=== PATIENT | female | born 1990 | race Caucasian/White ===

== ENCOUNTER 2016-11-14 16:05 | Emergency (ER) | payer OTHER ==
[~2016-11-14 16:05] MED LIST: FERR1TAB36 PO; PROM12.54 PO
[2016-11-14 16:38] VITALS: BP 113/67; PULSE 74
--- NOTE | 2016-11-14 16:42 | PD ---
HPI Chief Complaint pelvic pain Date Seen: Nov 14, 2016 Time Seen: 16:28 (Felix Hammonds MD R1) Travel History International Travel<30 Days: No Contact w/Intl Traveler<30Days: No (Felix Hammonds MD R1) History of Present Illness HPI 26 y/o at 30/6 weeks presents with lower pelvic pain. States they started last night and continued through this morning. Endorses movement. Denies vaginal bleeding, loss of fluids, contractions. Experiences [place] every once and awhile. Her OB is Dr. Martinez at the [facility]. Denies any other symptoms currently. Denies dysuria. Denies headache, changes in vision, epigastric pain, leg edema. Denies chest pain, SOB, leg pain. No complications with this . Para: 2 : 3 (Felix Hammonds MD R1) History Past Medical History Medical History: Denies Significant Hx (Felix Hammonds MD R1) Obstetric History Obstetric History Previous 2 deliveries were term, (Felix Hammonds MD R1) Past Surgical History Surgical History: No Previous Surgery (Felix Hammonds MD) Family History Family History: Negative (Felix Hammonds MD) Social History Alcohol Use: No Tobacco Use: No Substance Abuse: No (Felix Hammonds MD R1) Allergies-Medications (Allergen,Severity, Reaction): Coded Allergies: No Known Allergies (Unverified , 11/01/16) Home Meds Active Scripts Cephalexin (Keflex)500 Mg [id number] Mg PO Q12H #14 CAP Ref 0 Prov:oTri Carney MD R2 11/14/16 Ferrous Sulfate (Iron)325 Mg [id number] Mg PO TIDPC #90 TAB Ref 2 Prov:Pat Martinez MD, R3 11/01/16 Reported Medications Promethazine 12.5 Mg Tab12.5 Mg PO Q6H PRN (NAUSEA OR VOMITING) #20 TAB Ref 0 08/31/16 Review of Systems General / Constitutional: Weight Gain, No: Fever, Weight Loss, Chills Eyes: No: Diploplia, Blurred Vision, Visual changes HENT: No: Headaches, Vertigo Cardiovascular: No: Irregular Rhythm, Chest Pain or Discomfort, Palpitations Respiratory: No: Cough, Short of Breath Gastrointestinal: No: Nausea, Vomiting, Diarrhea, Constipation Genitourinary: Pelvic Pain, No: Urgency, Frequency, Dysuria, Discharge, Vaginal Bleeding Musculoskeletal: No: Limited ROM, Weakness Skin: No Rash, No Itching Neurologic: No: Weakness, Dizziness Psychiatric: No: Anxiety, Depression Endocrine: No: Heat Intolerance, Cold Intolerance Hematologic/Lymphatic: No Easy Bruising, No Lymph Node Enlargement (Felix Hammonds MD R1) Physical Exam Narrative GENERAL: Well-nourished, well-developed patient. SKIN: Warm and dry. HEAD: Normocephalic and atraumatic. EYES: No scleral icterus. No injection or drainage. ENT: No nasal drainage noted. Mucous membranes pink. Airway patent. NECK: Supple, trachea midline. No JVD. CARDIOVASCULAR: Regular rate and rhythm without murmurs, gallops, or rubs. RESPIRATORY: Breath sounds equal bilaterally. No accessory muscle use. ABDOMEN/GI: Abdomen soft, non-tender, bowel sounds present, no rebound, no guarding Gravid to 30 weeks size Fundal Height: 30cm GENITOURINARY: External Genitalia: intact and normal in appearance Dilatation: 0 Effacement: 0 Station: -3 Presentation: vertex Membranes: intact Uterine Contractions: none FHT's: Category: 1 Baseline: 130 Reactive: yes Variability: moderate Decels: none EXTREMITIES: No cyanosis or edema. BACK: Nontender without obvious deformity. No CVA tenderness. NEUROLOGICAL: Awake and alert. Motor and sensory grossly within normal limits. Five out of 5 muscle strength in all muscle groups. Normal speech. (Felix Hammonds MD R1) Data Data Vital Signs Reviewed: Yes (Felix Hammonds MD R1) MDM Medical Record Reviewed: Yes Interpretation(s) 26 y/o at 30/6 weeks presents with lower pelvic pain. -Cervical exam: 0/0/-3 -Category 1 FHT Plan - Monitor vitals - Continuous FHT - UA (Felix Hammonds MD R1) Narrative Course / MDM UA significant for large leukocyte esterase, rare urine bacteria, many mucus, 7 WBCs Will treat with Keflex 500mg PO BID x 7 days. Follow-up with Dr. Martinez. juju Velez (Tori Carney MD R2) Diagnosis Diagnosis: Primary Impression: UTI (urinary tract infection) Qualified Code: N30.00 - Acute cystitis without hematuria Disposition: 01 DISCHARGE HOME Condition: Stable Scripts Cephalexin (Keflex)500 Mg [id number] Mg PO Q12H #14 CAP Ref 0 Prov:Tori Carney MD R2 11/14/16 Addendum Remarks Urinalysis shows protein Rbc's WBCs Yeast Patient to be treated with Keflex 500 mg by mouth 3 times a day for 7 days Discharge home kick count No fluid hydration No cervical change cervix is closed Category 1 tracing (Rosanne Sanchez MD) Felix Hammonds MD R1 Nov 14, 2016 16:42 Tori Carney MD R2 Nov 14, 2016 18:10 Rosanne Sanchez MD Nov 14, 2016 18:15
[2016-11-14 18:07] LABS: BACTERIA, URINE RARE /hpf; BLOOD, URINE NEG (NEG); CALCIUM OXALATE CRYSTALS,URINE OCC /hpf; COMMENT (UR) CULT NOT INDICATED; CULTURE IF INDICATED CULT NOT INDICATED; GLUCOSE,URINE NEG (NEG); HYALINE CAST, URINE 2 /lpf (RARE); KETONE, URINE NEG (NEG); MUCUS URINE MANY /lpf (OCC); NITRITE,URINE NEG (NEG); PH, URINE 5.5 (5.0-8.5); SQUAMOUS EPITHELIAL CELL URINE 16 /hpf (0-5); URINE COLOR DARK-YELLOW (YELLW/STRAW)
[2016-11-14] MEDS ORDERED: CEPH-460 PO (18:09)
[2016-11-14] MEDS ORDERED: DIFL150T PO (18:20)
[2016-12-10] MEDS ORDERED: INFL1INJ53 IM (10:57)
[2016-12-10] MEDS ORDERED: TETA1INJ6 IM (10:57)
== END 2016-11-14 18:36 | disposition home or self-care (01) ==
LOC: HOBED 16:05
DX: O23.43 Unspecified infection of urinary tract in pregnancy, third trimester (principal); Z3A.30 30 weeks gestation of pregnancy
CPT/HCPCS: 81001; 99284

== ENCOUNTER → 2016-11-21 | Outpatient (CLI) | payer OTHER ==
[~2016-11-21] MED LIST changes: +CEPH-460 PO; +IBUP-232 PO; +INFL1INJ53 IM; +PREN1PAK8; -PROM12.54 PO; +SENN1TAB PO; +TETA1INJ6 IM
== END ==
LOC: HPND 08:54
PROVIDERS: ATTEND Family Medicine
DX: O26.849 Uterine size-date discrepancy, unspecified trimester (principal)
CPT/HCPCS: 76816

== ENCOUNTER → 2016-12-12 | Outpatient (CLI) | payer OTHER ==
[~2016-12-12] MED LIST changes: -CEPH-460 PO; -INFL1INJ53 IM; -TETA1INJ6 IM
== END ==
LOC: HPND 07:58
PROVIDERS: ATTEND Family Medicine
DX: O36.5930 Maternal care for other known or suspected poor fetal growth, third trimester, not applicable or unspecified (principal); Z3A.34 34 weeks gestation of pregnancy
CPT/HCPCS: 76816

== ENCOUNTER 2016-12-30 22:13 | Inpatient (IN) | payer OTHER ==
[~2016-12-30] VITALS: Ht 162.6 cm; Wt 61.2 kg
[~2016-12-30 22:13] MED LIST changes: -IBUP-232 PO; -PREN1PAK8; -SENN1TAB PO
[2016-12-30 22:30] VITALS: TEMP 98
[2016-12-30] MEDS: LACTATED RINGER'S 1000 ML INJ 1,000 ML IV SCH (22:47)
[2016-12-30] MEDS ORDERED: LACTATED RINGER'S 1000 ML INJ 1,000 ML IV PRN (22:47)
[2016-12-30] MEDS ORDERED: PREN1PAK8 (22:59)
[2016-12-30] MEDS ORDERED: ONDANSETRON HCL 4 MG/2 ML VIAL IV PRN (23:00)
[2016-12-30] MEDS ORDERED: CITRIC ACID-SODIUM CITRATE LIQ 30 ML UDC PO SCH (23:00)
[2016-12-30] MEDS ORDERED: SODIUM CHLORID 0.9% 500 ML INJ 500 ML IV PRN (23:00)
[2016-12-30] MEDS ORDERED: OXYTOCIN 30 UNITS-500ML PREMIX 500 ML IV ONE (23:00)
[2016-12-30] MEDS ORDERED: MINERAL OIL 10 ML VIAL TOPICAL PRN (23:00)
[2016-12-30] MEDS ORDERED: LIDOCAINE HCL 1% 50 ML VIAL INFIL PRN (23:00)
[2016-12-30] MEDS ORDERED: LIDOCAINE HCL 1% 50 ML VIAL I-DERMAL PRN (23:00)
--- NOTE | 2016-12-30 23:04 | PD ---
HPI Chief Complaint Contractions, rule out labor Date Seen: Dec 30, 2016 Time Seen: 22:52 Travel History International Travel<30 Days: No Contact w/Intl Traveler<30Days: No History of Present Illness HPI female at 37/3, EDC 01/17/17 by second trimester U/S, presents with contractions and rule out labor. Denies loss of fluid or vaginal bleeding and still feels baby move. complicated by SGA. Infant at 25th percentile at scan 12/12/16. Past medical history significant only for anemia, for which she takes iron pills and vitamin. Denies tobacco, alcohol or recreational drug use. Has not yet had GBS testing. 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 She declines epidural. Para: 2 : 3 Last Menstrual Period: Apr 11, 2016 Miscarriage: 0 : 0 History Past Medical History Narrative Medical Anemia Obstetric History Obstetric History 04/2015: vaginal delivery at 38 weeks 07/2008: vaginal delivery at 38 weeks Past Surgical History Surgical History: No Previous Surgery Family History Narrative Family History Family history of autism in son. Otherwise negative, see ACOG Social History Narrative Social History , presents with Alcohol Use: No Tobacco Use: No Substance Abuse: No Allergies-Medications (Allergen,Severity, Reaction): Coded Allergies: No Known Allergies (Unverified , 12/30/16) Home Meds Active Scripts Ferrous Sulfate (Iron)325 Mg [id number] Mg PO TIDPC #90 TAB Ref 2 Prov:Pat Martinez MD 11/01/16 Reported Medications Mv & Min W/ Methylfol ( + Complete Multi 0.267 & 373 mg) Unknown Strength PakUnknown Dose 12/30/16 Review of Systems Except as stated in HPI: all other systems reviewed are Neg Physical Exam Reviewed in OB trace. Blood pressure 126/71. Pulse 76. Respiration 18. Breathing well on room air. Narrative GENERAL: Adult gravid female in mild distress secondary to contractions SKIN: Warm and dry. HEENT: Pupils equal and round. EOMI. MMM. NECK: Supple, trachea midline CV: RRR. No murmurs or gallops. RESP: Breath sounds equal bilaterally. No accessory muscle use. ABDOMEN/GI: Abdomen gravid GENITOURINARY: Dilatation: 5 Effacement: 90 Station:-1 Membranes: intact Uterine Contractions: every 3-4 minutes FHT's: Category: 1 Baseline: 140 Reactive: Yes, to 155 Variability: Moderate Decels:No EXTREMITIES: No cyanosis or edema. NEURO: Awake and alert. Motor and sensory grossly within normal limits. Normal speech. Data Data Vital Signs Reviewed: Yes Orders Ob (2e) Additional Admit Info (12/30/16 22:49) Admit To Inpatient (12/30/16 ) Code Status (12/30/16 22:47) Vital Signs (Adult) .Per protocol (12/30/16 22:47) Activity Oob Ad Sydney (12/30/16 22:47) ^ Heart (12/30/16 22:47) ^ Amnioinfusion (12/30/16 22:47) Urinary Catheter Management .ONCE (12/30/16 22:47) Lactated Ringer's 1000 Ml Inj (Lr 1000 M (12/30/16 22:47) Lactated Ringer's 1000 Ml Inj (Lr 1000 M (12/30/16 22:47) Sodium Chlorid 0.9% 500 Ml Inj (Ns 500 M (12/30/16 23:00) Sodium Chlor 0.9% 1000 Ml Inj (Ns 1000 M (12/30/16 23:07) Lidocaine 1% Inj (50 Ml) (Xylocaine 1% I (12/30/16 23:00) Citric Acid-Sodium Citrate Liq (Bicitra (12/30/16 23:00) Ondansetron Inj (Zofran Inj) (12/30/16 23:00) Fentanyl Inj (Fentanyl Inj) (12/30/16 23:00) Fentanyl Inj (Fentanyl Inj) (12/30/16 23:00) Complete Blood Count With Diff (12/30/16 22:47) Hold Clot (12/30/16 22:47) Abo/Rh Blood Type (12/30/16 22:47) Urinalysis - C+S If Indicated (12/30/16 22:47) Resp Oxygen Non Rebreathe Mask (12/30/16 ) ^ Epidural / Intrathecal Infus (12/30/16 22:47) Oxytocin 30 Units-500ml Premix (Pitocin (12/30/16 23:00) Lidocaine 1% Inj (50 Ml) (Xylocaine 1% I (12/30/16 23:00) Light Mineral Oil (Muri-Lube Oil) (12/30/16 23:00) Inpatient Certification (12/30/16 ) Group B Beta Strep Scrn (Gbs) (12/30/16 22:47) MDM Medical Record Reviewed: Yes Plan female at 37/3, EDC 01/17/17 by second trimester U/S, presents in active labor. complicated by SGA infant (25th %). Maternal PMHx significant for anemia. FHx autism. Continuity patient of Dr. Martinez 1. Intrauterine , Active Labor -Admit for active labor -Routine pre- care -CBC, U/A, ABO/Rh screen, GBS PRC rapid, Chlamydia/Gonorrhea pending -Maternal blood type: A+ -Declines epidural -Hep B (-), HIV (-) -Anticipate Vaginal delivery 2. GBS unknown -Rapid GBS pending, if positive, notify physician, will start prophylactic antibiotics 3. Maternal anemia -Continue home iron -Continue pre-sanjiv vitamin 4. SGA infant -Management per pediatric team SDW: Dr Brian Crooks DW: Dr Walsh, Malou Scott MD R1 Dec 30, 2016 23:04
[2016-12-30 23:07] LABS: AUTOMATED NEUTROPHIL # 6.7 TH/MM3 (1.8-7.7); BASOPHIL % 0.3 % (0.0-2.0); EOSINOPHIL % 0.3 % (0.0-4.0); HEMATOCRIT 31.1 % (35.0-46.0); HEMO FLAGS DIFF FINAL; LYMPH % 28.4 % (9.0-44.0); LYMPHOCYTE # 2.9 TH/MM3 (1.0-4.8); MEAN CELL VOLUME 82.5 FL (80.0-100.0); MEAN CORPUSCULAR HEMOGLOBIN 27.6 PG (27.0-34.0); MEAN CORPUSCULAR HGB CONC 33.5 % (32.0-36.0); MONO % 4.3 % (0.0-8.0); NEUT % 66.7 % (16.0-70.0); PLATELET COUNT 124 TH/MM3 (150-450); RED BLOOD COUNT 3.77 MIL/MM3 (4.00-5.30); RED CELL DISTRIBUTION WIDTH 17.2 % (11.6-17.2); WHITE BLOOD COUNT 10.1 TH/MM3 (4.0-11.0)
[2016-12-30] MEDS ORDERED: SODIUM CHLOR 0.9% 1000 ML INJ 1,000 ML IV PRN (23:07)
--- NOTE | 2016-12-30 23:16 | HHI.HP ---
History & Physical H&P HPI Chief Complaint Contractions, rule out labor Date Seen: Dec 30, 2016 Time Seen: 22:52 Travel History International Travel<30 Days: No Contact w/Intl Traveler<30Days: No History of Present Illness HPI female at 37/3, EDC 01/17/17 by second trimester U/S, presents with contractions and rule out labor. Denies loss of fluid or vaginal bleeding and still feels baby move. complicated by SGA. Infant at 25th percentile at scan 12/12/16. Past medical history significant only for anemia, for which she takes iron pills and vitamin. Denies tobacco, alcohol or recreational drug use. Has not yet had GBS testing. 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 She declines epidural. Para: 2 : 3 Last Menstrual Period: Apr 11, 2016 Miscarriage: 0 : 0 History (Limited) History Past Medical History Narrative Medical Anemia Obstetric History Obstetric History 04/2015: vaginal delivery at 38 weeks 07/2008: vaginal delivery at 38 weeks Past Surgical History Surgical History: No Previous Surgery Family History Narrative Family History Family history of autism in son. Otherwise negative, see ACOG Social History Narrative Social History , presents with Alcohol Use: No Tobacco Use: No Substance Abuse: No Allergies-Medications Allergies-Medications (Allergen,Severity, Reaction): Coded Allergies: No Known Allergies (Unverified , 12/30/16) Home Meds Active Scripts Ferrous Sulfate (Iron)325 Mg [id number] Mg PO TIDPC #90 TAB Ref 2 Prov:Pat Martinez MD 11/01/16 Reported Medications Mv & Min W/ Methylfol ( + Complete Multi 0.267 & 373 mg) Unknown Strength PakUnknown Dose 12/30/16 ROS Review of Systems Except as stated in HPI: all other systems reviewed are Neg Physical Exam Physical Exam Reviewed in OB trace. Blood pressure 126/71. Pulse 76. Respiration 18. Breathing well on room air. Narrative GENERAL: Adult gravid female in mild distress secondary to contractions SKIN: Warm and dry. HEENT: Pupils equal and round. EOMI. MMM. NECK: Supple, trachea midline CV: RRR. No murmurs or gallops. RESP: Breath sounds equal bilaterally. No accessory muscle use. ABDOMEN/GI: Abdomen gravid GENITOURINARY: Dilatation: 5 Effacement: 90 Station:-1 Membranes: intact Uterine Contractions: every 3-4 minutes FHT's: Category: 1 Baseline: 140 Reactive: Yes, to 155 Variability: Moderate Decels:No EXTREMITIES: No cyanosis or edema. NEURO: Awake and alert. Motor and sensory grossly within normal limits. Normal speech. Data Data Data Vital Signs Reviewed: Yes Orders Ob (2e) Additional Admit Info (12/30/16 22:49) Admit To Inpatient (12/30/16 ) Code Status (12/30/16 22:47) Vital Signs (Adult) .Per protocol (12/30/16 22:47) Activity Oob Ad Sydney (12/30/16 22:47) ^ Heart (12/30/16:47) ^ Amnioinfusion (12/30/16 22:47) Urinary Catheter Management .ONCE (12/30/16 22:47) Lactated Ringer's 1000 Ml Inj (Lr 1000 M (12/30/16 22:47) Lactated Ringer's 1000 Ml Inj (Lr 1000 M (12/30/16 22:47) Sodium Chlorid 0.9% 500 Ml Inj (Ns 500 M (12/30/16 23:00) Sodium Chlor 0.9% 1000 Ml Inj (Ns 1000 M (12/30/16 23:07) Lidocaine 1% Inj (50 Ml) (Xylocaine 1% I (12/30/16 23:00) Citric Acid-Sodium Citrate Liq (Bicitra (12/30/16 23:00) Ondansetron Inj (Zofran Inj) (12/30/16 23:00) Fentanyl Inj (Fentanyl Inj) (12/30/16 23:00) Fentanyl Inj (Fentanyl Inj) (12/30/16 23:00) Complete Blood Count With Diff (12/30/16 22:47) Hold Clot (12/30/16 22:47) Abo/Rh Blood Type (12/30/16 22:47) Urinalysis - C+S If Indicated (12/30/16 22:47) Resp Oxygen Non Rebreathe Mask (12/30/16 ) ^ Epidural / Intrathecal Infus (12/30/16 22:47) Oxytocin 30 Units-500ml Premix (Pitocin (12/30/16 23:00) Lidocaine 1% Inj (50 Ml) (Xylocaine 1% I (12/30/16 23:00) Light Mineral Oil (Muri-Lube Oil) (12/30/16 23:00) Inpatient Certification (12/30/16 ) Group B Beta Strep Scrn (Gbs) (12/30/16 22:47) MDM MDM Medical Record Reviewed: Yes Plan female at 37/3, EDC 01/17/17 by second trimester U/S, presents in active labor. complicated by SGA (25th %). Maternal PMHx significant for anemia. FHx autism. Continuity patient of Dr. Martinez 1. Intrauterine , Active Labor -Admit for active labor -Routine pre-sanjiv care -CBC, U/A, ABO/Rh screen, GBS PRC rapid, Chlamydia/Gonorrhea pending -Maternal blood type: A+ -Declines epidural -Hep B (-), HIV (-) -Anticipate Vaginal delivery 2. GBS unknown -Rapid GBS pending, if positive, notify physician, will start prophylactic antibiotics 3. Maternal anemia -Continue home iron -Continue pre-sanjiv vitamin 4. SGA infant -Management per pediatric team SDW: Dr Brian Crooks DW: Dr Walsh, Malou Scott MD R1 Dec 30, 2016 23:04 Malou White MD R1 Dec 30, 2016 23:16
[2016-12-30 23:26] LABS: BACTERIA, URINE RARE /hpf; BLOOD, URINE NEG (NEG); GLUCOSE,URINE NEG (NEG); KETONE, URINE NEG (NEG); MUCUS URINE FEW /lpf (OCC); NITRITE,URINE NEG (NEG); PH, URINE 6.5 (5.0-8.5); SQUAMOUS EPITHELIAL CELL URINE 1 /hpf (0-5); URINE COLOR LIGHT-YELLOW (YELLW/STRAW)
[2016-12-30 23:28] LABS: COMMENT (UR) CULT NOT INDICATED; CULTURE IF INDICATED CULT NOT INDICATED
[2016-12-30 23:59] VITALS: BP 127/58; PULSE 77; RESP 18
[2016-12-31] VITALS (14 sets, daily range): BP systolic 97–128; BP diastolic 36–72; PULSE 18–101; RESP 18–20; TEMP 98–98.1; O2SAT 99
[2016-12-31 01:08] LABS: CHLAMYDIA PCR NOT DETECTED (NOT DETECT); NEISSERIA PCR NOT DETECTED (NOT DETECT)
--- NOTE | 2016-12-31 01:12 | PD.LABORPN ---
Subjective Subjective GBS negative. Patient tolerating AROM, productive of clear fluid without cord prolapse. Patient with no concerns, having regular contractions. Objective Vital Signs Vital Signs Date Time Temp Pulse Resp B/P Pulse Ox O2 Delivery O2 Flow Rate FiO2 12/30/16 23:59 77 127/58 12/30/16 23:59 18 12/30/16 22:30 98.0 Objective Pelvic Exam: Cervix: [-] Dilatation: [-] 7-8 Effacement: [-] 100 Station: [-] 0 Presentation: [-] cephalic Membranes: ruptured Uterine Contractions: [-] regular, q2-3mins FHT's: Category: [-] 1 Baseline: [-] 130 Reactive: [-] accelerations to 150 Variability: [-] mod Decels: [-] none Assessment/Plan Assessment and Plan 26 yo at 37 4/7 W, admitted for labor. Labor. GBS neg. Good contraction pattern without Pitocin. VSS. -Continue expectant management -IV fluids at 125 mls/hr -Prior concern for SGA infant, however, US at 34 weeks placed infant at 25%ile for gestational age Anemia -Fe supplementation wdw: Pat Lilly MD Dec 31, 2016 01:12
--- NOTE | 2016-12-31 02:21 | PD.LABORPN ---
Subjective Subjective OB attending delivery note This is a 37 weeks delivered vaginally over an intact perineum a healthy weight 2355 g 8/ 9 sex male, was no complication delivered perform a family practice resident supervised by myself. Placenta delivered intact, cord blood obtained, no lacerations, EBL minimal. Mother & baby doing well Objective Vital Signs Vital Signs Date Time Temp Pulse Resp B/P Pulse Ox O2 Delivery O2 Flow Rate FiO2 12/31/16 01:12 101 128/68 12/31/16 01:10 20 12/30/16 23:59 77 127/58 12/30/16 23:59 18 12/30/16 22:30 98.0 Objective Pelvic Exam: Cervix: [-] Dilatation: [-] Effacement: [-] Station: [-] Presentation: [-] Membranes: [intact or ruptured] Uterine Contractions: [-] FHT's: Category: [-] Baseline: [-] Reactive: [-] Variability: [-] Decels: [-] Eduar Walsh II, MD Dec 31, 2016 02:20
--- NOTE | 2016-12-31 02:23 | PD.OB.DELI ---
Delivery Date: Dec 31, 2016 Anesthesia: None Episiotomy: None Vaginal Delivery: Normal Presentation: Occiput anterior Nuchal Cord: None Delayed cord clamping (45 sec): No Infant: Male One Minute : 8 Five Minute : 9 Weight: 2355g Care: Spontaneous crying Placenta: Spontaneous delivery, Intact, 3 vessel cord Laceration: No lacerations Additional Information Dr. Walsh attending Pat Martinez MD Dec 31, 2016 02:23
[2016-12-31] MEDS ORDERED: ACETAMINOPHEN 325 MG TAB PO PRN (02:30)
[2016-12-31] MEDS ORDERED: ZOLPIDEM TARTRATE 5 MG TAB PO PRN (02:30)
[2016-12-31] MEDS ORDERED: BENZOCAINE 20% TOPICAL SPRAY 60 ML CAN TOPICAL PRN (02:30)
[2016-12-31] MEDS ORDERED: ALUMINUM/MAGNESIUM/SIMETH 30 ML CUP PO PRN (02:30)
[2016-12-31] MEDS ORDERED: SODIUM CHLORIDE 0.9% FLUSH 5 ML FLUSH IV PRN (02:30)
[2016-12-31] MEDS ORDERED: WITCH HAZEL 50%/GLYCERIN 12.5% 40 PAD JAR TOPICAL PRN (02:30)
[2016-12-31] MEDS ORDERED: ONDANSETRON ODT 4 MG TAB PO PRN (02:30)
--- NOTE | 2016-12-31 08:17 | HHI.OB ---
Subjective Post Day: 0 Remarks day #0. AFVSS overnight. Pain is minimal. Decreased lochia. Denies dysuria. No breast tenderness. She is feeding the baby via breast and formula. Appetite good. No nausea or vomiting. Ambulating well. Denies calf pain, shortness of breath, or cough. Otherwise, she is doing well this morning and has no other complaints. Objective Vitals/I&O Vital Signs Date Time Temp Pulse Resp B/P Pulse Ox O2 Delivery O2 Flow Rate FiO2 12/31/16 04:10 18 18 12/31/16 04:10 98.0 60 99 12/31/16 04:10 101/48 12/31/16 03:30 66 117/54 12/31/16 03:20 18 12/31/16 03:15 62 108/72 12/31/16 03:05 18 12/31/16 03:00 68 123/52 12/31/16 02:50 18 12/31/16 02:45 69 121/52 12/31/16 02:31 86 107/41 12/31/16 02:31 84 97/36 12/31/16 02:20 18 12/31/16 02:18 89 120/51 12/31/16 01:12 101 128/68 12/31/16 01:10 20 12/30/16 23:59 77 127/58 12/30/16 23:59 18 12/30/16 22:30 98.0 Objective Remarks GENERAL: Well-nourished, well-developed patient. CARDIOVASCULAR: Regular rate and rhythm without murmurs, gallops, or rubs. RESPIRATORY: Breath sounds equal bilaterally. No accessory muscle use. ABDOMEN/GI: Abdomen soft, non-tender. Fundus: Firm, non-tender at umbilicus. GENITOURINARY: Light to moderate bleeding. EXTREMITIES: No cyanosis or edema, non-tender, without signs of DVT. Medications and IVs Current Medications Medications (Trade) Dose Ordered Sig/Haylee Route Start Time Stop Time Status Last Admin Lactated Ringer's 1,000 ml @ 125 mls/hr Q8H IV 12/30/16 22:47 12/30/16 22:47 Lactated Ringer's 1,000 ml @ 3,000 mls/hr Q20M PRN IV 12/30/16 22:47 (NS 1000 ml Inj) 1,000 ml @ 100 mls/hr Q10H PRN IV 12/30/16 23:07 (Zofran Inj) 4 mg Q6H PRN IV 12/30/16 23:00 (fentaNYL INJ) 50 mcg Q1H PRN IV PUSH 12/30/16 23:00 (fentaNYL INJ) 100 mcg Q1H PRN IV PUSH 12/30/16 23:00 (Muri-Lube Oil) 10 ml UNSCH PRN TOPICAL 12/30/16 23:00 (Ferrous Sulfate) 325 mg TIDPC PO 12/31/16 09:30 (NS Flush) 2 ml BID IV 12/31/16 09:00 (NS Flush) 2 ml UNSCH PRN IV 12/31/16 02:30 (Tylenol) 650 mg Q4H PRN PO 12/31/16 02:30 (Motrin) 600 mg Q6H PRN PO 12/31/16 02:30 (Americaine 20% Top Spr) 1 spray Q4H PRN TOPICAL 12/31/16 02:30 (Tucks Pads) 1 applic QID PRN TOPICAL 12/31/16 02:30 (Rosy-Colace) 2 tab Q12H PRN PO 12/31/16 02:30 (Ambien) 5 mg HS PRN PO 12/31/16 02:30 (M-M-R Ii Inj) 0.5 ml ONCE ONCE SQ 12/31/16 16:00 12/31/16 16:01 (Boostrix Inj) 0.5 ml ONCE ONCE IM 12/31/16 16:00 12/31/16 16:01 (Mag-Al Plus Susp Liq) 15 ml Q8H PRN PO 12/31/16 02:30 (Zofran Odt) 4 mg Q6H PRN PO 12/31/16 02:30 Assessment/Plan Assessment and Plan 26y/o G3, now P3 who is PPD#0 s/p . -Continue routine care. -Percocet and Motrin PRN pain. -Iron sulfate 325 mg by mouth 3 times a day given history of anemia; patient asymptomatic, minimal blood loss at delivery -Encouraged OOB. Advised pelvic rest for 6 wks. -Will need a f/u appt. within 6 wks. -Re: ctrl, she would like BTL; does not desire alternative form of contraception prior to BTL. -D/c in 1-[address] Walsh Discharge Planning likely home tomorrow evening Pat Martinez MD Dec 31, 2016 08:17
[2016-12-31] MEDS ORDERED: SODIUM CHLORIDE 0.9% FLUSH 5 ML FLUSH IV SCH (09:00)
[2016-12-31] MEDS: IBUPROFEN 600 MG TAB PO PRN ×3 (09:16→22:04)
[2016-12-31] MEDS: FERROUS SULFATE 325 MG (65 MG ELEMENTAL IRON) TAB PO SCH ×3 (09:30→18:30)
[2016-12-31] MEDS ORDERED: DIPHTH/TETANUS/ACEL PERTUSSIS (BOOSTER) 0.5 ML VIAL/PFS IM ONE (16:00)
[2016-12-31] MEDS ORDERED: MEASLES, MUMPS, RUBELLA VACCINE 0.5 ML VIAL SQ ONE (16:00)
[2016-12-31] MEDS: DOCUSATE SODIUM 50 MG/SENNA 8.6 MG TAB PO PRN (22:04)
[2016-12-31] MEDS: LACTATED RINGER'S 1000 ML INJ 1,000 ML IV SCH (22:47)
[2017-01-01] MEDS: IBUPROFEN 600 MG TAB PO PRN (04:27)
[2017-01-01] MEDS ORDERED: SENN1TAB PO (06:58)
[2017-01-01] MEDS ORDERED: IBUP-232 PO (06:58)
--- NOTE | 2017-01-01 07:02 | HHI.DCPOC ---
Discharge Care Plan Diagnosis: (1) Vaginal delivery Goals to Promote Your Health * To prevent worsening of your condition and complications, take supplemental iron as ordered. Vaginal rest for 6 weeks. Follow up with PCP in 6 weeks. Directions to Meet Your Goals Take your medications as prescribed Follow your dietary instruction Follow activity as directed Keep your appointments as scheduled Take your immunizations and boosters as scheduled If your symptoms worsen call your PCP, if no PCP go to Urgent Care Center or Emergency Room Smoking is Dangerous to Your Health. Avoid second hand smoke Call the 24-hour hour crisis hotline for domestic abuse at Pat Martinez MD Jan 01, 2017 07:02
--- NOTE | 2017-01-01 07:07 | HHI.OB ---
Subjective Post Day: 1 Remarks day #1. AFVSS overnight. Pain is minimal. Decreased lochia. Denies dysuria. No breast tenderness. She is feeding the baby via breast and formula. Appetite good. No nausea or vomiting. Ambulating well. Denies calf pain, shortness of breath, or cough. Otherwise, she is doing well this morning and has no other complaints. (Pat Martinez MD) Objective Vitals/I&O Vital Signs Date Time Temp Pulse Resp B/P Pulse Ox O2 Delivery O2 Flow Rate FiO2 12/31/16 09:11 80 18 118/72 12/31/16 09:11 98.1 Objective Remarks GENERAL: Well-nourished, well-developed patient. CARDIOVASCULAR: Regular rate and rhythm without murmurs, gallops, or rubs. RESPIRATORY: Breath sounds equal bilaterally. No accessory muscle use. ABDOMEN/GI: Abdomen soft, non-tender. Fundus: Firm, non-tender at umbilicus. GENITOURINARY: Light to moderate bleeding. EXTREMITIES: No cyanosis or edema, non-tender, without signs of DVT. Medications and IVs Current Medications Medications (Trade) Dose Ordered Sig/Haylee Route Start Time Stop Time Status Last Admin Lactated Ringer's 1,000 ml @ 125 mls/hr Q8H IV 12/30/16 22:47 12/30/16 22:47 Lactated Ringer's 1,000 ml @ 3,000 mls/hr Q20M PRN IV 12/30/16 22:47 (NS 1000 ml Inj) 1,000 ml @ 100 mls/hr Q10H PRN IV 12/30/16 23:07 (Zofran Inj) 4 mg Q6H PRN IV 12/30/16 23:00 (fentaNYL INJ) 50 mcg Q1H PRN IV PUSH 12/30/16 23:00 (fentaNYL INJ) 100 mcg Q1H PRN IV PUSH 12/30/16 23:00 (Muri-Lube Oil) 10 ml UNSCH PRN TOPICAL 12/30/16 23:00 (Ferrous Sulfate) 325 mg TIDPC PO 12/31/16 09:30 12/31/16 18:30 (NS Flush) 2 ml BID IV 12/31/16 09:00 12/31/16 22:03 (NS Flush) 2 ml UNSCH PRN IV 12/31/16 02:30 (Tylenol) 650 mg Q4H PRN PO 12/31/16 02:30 (Motrin) 600 mg Q6H PRN PO 12/31/16 02:30 01/01/17 04:27 (Americaine 20% Top Spr) 1 spray Q4H PRN TOPICAL 12/31/16 02:30 (Tucks Pads) 1 applic QID PRN TOPICAL 12/31/16 02:30 (Rosy-Colace) 2 tab Q12H PRN PO 12/31/16 02:30 12/31/16 22:04 (Ambien) 5 mg HS PRN PO 12/31/16 02:30 (Mag-Al Plus Susp Liq) 15 ml Q8H PRN PO 12/31/16 02:30 (Zofran Odt) 4 mg Q6H PRN PO 12/31/16 02:30 (Pat Martinez MD) Assessment/Plan Assessment and Plan 26y/o G3, now P3 who is PPD#1 s/p . -Continue routine care. -Percocet and Motrin PRN pain. -Iron sulfate 325 mg by mouth 3 times a day given history of anemia; patient asymptomatic, minimal blood loss at delivery -Encouraged OOB. Advised pelvic rest for 6 wks. -Will need a f/u appt. within 6 wks. -Re: ctrl, she would like BTL; does not desire alternative form of contraception prior to BTL. -D/c home today wdw Dr. Vasquez Discharge Planning me home today (Pat Martinez MD) Attending Attestation The exam, history, and the medical decision-making described in the above note were completed with the assistance of the resident provider. I reviewed and agree with the findings presented. I attest that I had a [id number] encounter with the patient on the same day, and personally performed and documented my assessment and findings in the medical record. (Adriana Vasquez MD) Pat Martinez MD Jan 01, 2017 07:07 Adriana Vasquez MD Jan 01, 2017 07:42
[2017-01-01 08:38] VITALS: BP 122/79; PULSE 80; RESP 18; TEMP 98.6
[2017-01-01] MEDS: DOCUSATE SODIUM 50 MG/SENNA 8.6 MG TAB PO PRN (09:20)
[2017-01-01] MEDS: FERROUS SULFATE 325 MG (65 MG ELEMENTAL IRON) TAB PO SCH ×3 (09:20→17:14)
== END 2017-01-01 21:57 | disposition home or self-care (01) | DRG 775 ==
LOC: HOBED 22:13 → H2EB 22:51 → H1EA 12-31 03:48
PROVIDERS: ADMIT Obstetrics & Gynecology Maternal & Fetal Medicine; ATTEND Obstetrics & Gynecology Maternal & Fetal Medicine
PROC: 10E0XZZ Delivery of Products of Conception, External Approach (ICD-10-PCS; principal; 2016-12-31)
DX: O36.5930 Maternal care for other known or suspected poor fetal growth, third trimester, not applicable or unspecified (principal); D50.9 Iron deficiency anemia, unspecified; O99.02 Anemia complicating childbirth; Z3A.37 37 weeks gestation of pregnancy; Z37.0 Single live birth
CPT/HCPCS: 81001; 85025; 86900; 86901; 87081; 87150; 87491; 87591; 99285; J2590; J7120

== ENCOUNTER → 2017-04-15 | Day surgery (SDC) | payer OTHER ==
[~2017-04-15] VITALS: Ht 160 cm; Wt 58.4 kg
[~2017-04-15] MED LIST changes: +ACETAMINOPHEN 1000 MG/100 ML VIAL IV ONE; +CHLORHEXIDINE GLUCONATE 2 % 1 PACK (2 CLOTHS) TOPICAL PRN; +DEXAMETHASONE SOD PHOS 4 MG/ML VIAL ONE; +DICLOFENAC SODIUM 37.5 MG/ML VIAL IV PUSH ONE; +DO NOT ADM ANY ANTICOAGULANT DRUGS PRN; +FAMOTIDINE 20 MG/2 ML VIAL ONE; -FERR1TAB36 PO; +INSULIN HUMAN REGULAR 1,000 UNITS/10 ML VIAL SQ PRN; +KETOROLAC TROMETHAMINE 30 MG/ML (IVP) VIAL IV PUSH ONE; +KETOROLAC TROMETHAMINE 60 MG/2 ML (IM) VIAL IM ONE; +LACTATED RINGER'S 1000 ML IV PRN; +LIDOCAINE 1%/EPINEPHrine 1:100,000 SOLN 30 ML VIAL INFIL ONE; +METOPROLOL TARTRATE 25 MG TAB PO PRN; +MIDAZOLAM HCL 2 MG/2 ML VIAL ONE; +NEOSTIGMINE 3 MG/3 ML SYR IV ONE; +ONDANSETRON HCL 4 MG/2 ML VIAL IV PUSH ONE; +POVIDONE IODINE 5% (ANTISEPSIS KIT) 4 APPLICATIONS EACH NARE PRN; +PROPOFOL 200 MG/20 ML AMP IV ONE; +SODIUM CHLORID 0.9% 500 ML IV PRN; +ceFAZolin 2 GM PREMIX 50 ML IV SCH; +fentaNYL CITRATE 250 MCG/5 ML AMP ONE; +traMADol HCL 50 MG TAB PO ONE
[2017-04-15 09:31] VITALS: BP 128/80; PULSE 70; RESP 18; TEMP 98.1; O2SAT 99
[2017-04-15 14:07] VITALS: BP 118/56; PULSE 71; RESP 16; TEMP 98.3; O2SAT 100
--- NOTE | 2017-04-16 09:54 | MP ---
cc: OG BE,MARGE WITT,CHRISTIAN ALLEN MD DATE OF SURGERY 04/15/2017 POSTOPERATIVE DIAGNOSES Multiparity. Desires sterilization. POSTOPERATIVE DIAGNOSES Multiparity. Desires sterilization. Paratubal cysts. PROCEDURE Laparoscopic bilateral salpingectomy. SURGEON Dr. Esqueda. RESEARCH RECRUITER [facility]ovanni staff x 1. ANESTHESIA General endotracheal with OG tube. BLOOD LOSS Less than 5 cc. URINE OUTPUT 100 cc. FLUIDS 1000 cc crystalloid. FINDINGS External genitalia normal. POP-Q score: Aa is -2, Ap is -2. Point C is -8. Total vaginal length is 10. Genital hiatus is 6. Perineal body is 4. The uterus is retroverted, otherwise unremarkable, is mobile, somewhat boggy. Ovaries are normal. Tubes have paratubal cysts left greater than right. Upper abdomen normal. SPECIMEN Bilateral tubes. COMPLICATIONS None. DISPOSITION Patient to recovery room stable. COUNTS Needle and sponge counts correct. DRAINS Vincent catheter. ANTIBIOTIC PROPHYLAXIS Ancef 2 grams. DVT PROPHYLAXIS Sequential compression device. TIME-OUT PROCEDURE Per protocol. SUMMARY OF INDICATIONS FOR PROCEDURE Patient with multiparity, desires sterilization. PROCEDURE The patient was taken to the operating room theatre, prepped and draped in fashion appropriate for the planned procedure. She was in dorsal spine position with careful attention paid to position of the legs in the stirrups to avoid undue stress to sensitive neurovascular structures. Above findings noted. Neurovascular integrity documented. Vincent catheter was placed. The umbilicus was infiltrated with epinephrine-lidocaine solution. A 5-mm incision was made. The scope was placed without complication. Gas was insufflated, Trendelenburg position instituted. Auxiliary trocars were placed in the suprapubic and the left lower quadrant under direct visualization, a 5-mm in the left lower quadrant, an 8-mm in the suprapubic area. The pelvis was inspected. Although the tubes were mobile, they did have paratubal cysts, left more than the right. Decision was made to perform salpingectomy. The ureters were identified on each side. IP ligaments were identified. Harmonic energy was used to take the tube on the right from the fimbria down to the isthmus with good hemostasis. On the left the same procedure was performed. 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 Hemostasis was good. Gas was expressed. All areas were hemostatic with and without gas pressure. Hemostatic powder was used over the areas of dissection for added reassurance. The procedure was concluded. Incisions were closed with 4-0 Monocryl and Dermabond. The patient was reversed from anesthesia and taken to recover in stable condition. MD MOIRA Jackson/EVITA /1:35 PM /9:46 AM
--- NOTE | 2017-04-23 10:59 | MH ---
cc: MARGE SOFIA MD DATE OF ADMISSION 04/15/2017 DATE OF 1990 REASON FOR ADMISSION Laparoscopic tubal ligation or salpingectomy HISTORY OF PRESENT ILLNESS The patient is a 26-year-old female 3, para 3 who wants to proceed with surgical sterilization. She has tried an IUD in the past, but it became dislodged. She has three children under the age of 7 at home and her partner has three children as well. She has completed her childbearing and wants to proceed with surgical sterilization. PAST MEDICAL HISTORY Borderline hypertension, otherwise negative for heart, lung, liver disease, diabetes, or stroke. SURGICAL HISTORY None ALLERGIES None GYNECOLOGIC HISTORY No STD's or abnormal Pap smears. OBSTETRICAL HISTORY Three vaginal deliveries. 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 No alcohol, tobacco or drugs. FAMILY HISTORY Contributory REVIEW OF SYSTEMS As above. No chest pain, orthopnea, PND, nausea, vomiting, fevers or chills. PHYSICAL EXAM On exam, she is afebrile, signs are stable, blood pressure is 140/70, height is 5.4, weight 129, BMI is 22. Patient is alert and oriented in no acute distress. No sign of cognitive function or depression. HEENT: Within normal limits. NECK: Supple. No JVD. CHEST: Clear. HEART: Regular rhythm and rhythm. ABDOMEN: Soft and nontender. No hepatosplenomegaly. No CVA tenderness. PELVIC: Exam will be detailed under anesthesia. EXTREMITIES: Normal, skin without rashes. NEUROLOGIC: Exam is nonfocal. No DVT signs. ASSESSMENT Patient with multiparity desires sterilization. The patient and I discussed extensively the options for management and treatment. She is aware of alternative methods of contraception including surgical methods and reversible methods. She is also aware of the possibility of failure of tubal is probably in the range of 1% in light of her age and the risk of regret is relatively high. She is also aware of the possibility of surgical complications including bowel and bladder injury. Patient has made an informed choice to proceed. At this point, we anticipate outpatient procedure. We will use umbilical approach with a salpingectomy or cauterization technique depending on internal anatomy. The patient will undergo antibiotic prophylaxis with Ancef two grams IV and DVT prophylaxis with sequential compression device. MD MOIRA Jackson/DJL 11:30 AM 11:01 AM
== END | disposition home or self-care (01) ==
LOC: HSDC 08:42
PROVIDERS: ATTEND Obstetrics & Gynecology Gynecology
DX: Z30.2 Encounter for sterilization (principal); N83.8 Other noninflammatory disorders of ovary, fallopian tube and broad ligament
CPT/HCPCS: 00840; 58661; 88302; J0131; J0690; J1100; J1885; J2250; J2405; J2710; J3010; J7120; J1130